=== PATIENT | female | born 1995 | race Caucasian/White ===

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

== ENCOUNTER 2020-07-31 18:27 | Emergency (ER) | payer OTHER ==
[~2020-07-31 18:27] MED LIST: ANTIVERT 25MG T25 MG PO; CARDIZEM CD120 MG PO; CEFUROXIME500 MG PO; FERROUS SULFAT324 MG PO; FLECAINIDE ACET50 MG PO; IRON325 M1 PO; K-DUR TAB 20 M20 MEQ PO; LODINE CAP 300300 MG PO; NORFLEX 100 MG100 MG PO; OMNICEF 300 MG300 MG PO; PROPAFENONE HC150 MG PO; PYRIDIUM200 MG PO; TAMIFLU75 MG PO
== END 2020-07-31 18:43 | disposition left against medical advice (07) ==
LOC: ER1 18:27
DX: Z53.21 Procedure and treatment not carried out due to patient leaving prior to being seen by health care provider (principal)

== ENCOUNTER → 2021-08-03 | Outpatient (CLI) | payer OTHER ==
[2021-08-03 10:35] LABS: HEMOGLOBIN 12.4 gm/dl (12.3-15.3); RED BLOOD COUNT 4.33 M/UL (4.00-5.10); WHITE BLOOD COUNT 5.2 K/UL (4.5-11.0)
== END ==
LOC: LAB 10:16
PROVIDERS: Nurse Practitioner Family
DX: M25.50 Pain in unspecified joint (principal)
CPT/HCPCS: 36415; 85025; 85652; 86140; 86431

== ENCOUNTER → 2021-08-23 | Outpatient (CLI) | payer OTHER | LOC: KOH-I 08-13 09:30 | DX: R10.13 Epigastric pain (principal) | CPT/HCPCS: 76700; 76856 ==